=== PATIENT | male | born 1965 | race African-American/Black ===

== ENCOUNTER 2019-06-13 19:36 | Inpatient (IN) | payer OTHER ==
[~2019-06-13] VITALS: Ht 170.2 cm; Wt 89.4 kg
[2019-06-14] VITALS (7 sets, daily range): BP systolic 129–149; BP diastolic 74–84
--- NOTE | 2019-06-14 00:35 | NUR ---
ADMISSION NOTES: RECEIVED REPORT FROM GENE BAHENA, PT BROUGHT TO THE UNIT VIA FLIP. PT DIRECT ADMIT FROM [facility]. PT IS A/O X4, ON RA RESPIRATIONS EVEN AND UNLABORED. PT STILL COMPLAINING OF NON RADIATING PAIN O HIS CHEST AREA. PT CLAIMED HE TOOK NORCO 10/325 MG WHICH HELP WITH HIS PAIN, BUT CLAIMED PAIN STILL THERE. HE ALSO STATED HE'S TAKING FLOMAX DAILY, AND THOSE ARE THE ONLY MEDS HE TAKE AT HOME. PT HAS IV ACCESS ON LEFT AC G 20 PATENT AND FLUSHING WELL, ON HL. ON TELEMONITORING SINUS RHYTHM HR 64. SKIN ASSESSMENT PERFORMED AND NOTED EDEMA ON SCROTUM, PENIS AREA, LEGS AND FEET. FEET EDEMA +2, OFFLOADED ON PILLOWS. SCROTUM OFFLOADED ON ROLLED TOWEL. ADMISSION INTERVIEW PERFORMED. ORIENTED PT TO UNIT POLICY AND HOURLY ROUNDING, USE OF CALL LIGHT SYSTEM. INVENTORY OF BELONGINGS COMPLETED BY JOSH SALAZAR. VS TAKEN AND RECORDED. STANDBY OXYGEN. SAFETY PRECAUTIONS FOR FALL INITIATED, CALL LIGHT IN REACH, WILL CONTINUE MONITORING PT.
--- NOTE | 2019-06-14 01:00 | NUR ---
RN NOTES: PT PMH OF CHEST PAIN, NEPHROLITHIASIS. PT ADMITTD HE HAS PAST HX OF MANIC EPISODE AND HALLUCINATION, DEPRESSION AND WAS PUT ON SEROQUEL BUT CLAIMED HE STOPPED TAKING THE SAID MEDICATION LAST YEAR DUE TO UNWANTED SIDE EFFECTS. PT DENIES ANY SI/HI AT THIS TIME.
[2019-06-14] MEDS ORDERED: HYDR-4354 PO (01:20)
[2019-06-14] MEDS ORDERED: TAMS-12 PO (01:20)
--- NOTE | 2019-06-14 01:35 | NUR ---
RN NOTES: NOTIFIED MD FEED CRUSHER OPERATOR OF PT'S ARRIVAL TO THE UNIT, ALL HOME MEDS PLACED IN THE COMPUTER FOR MED RECON. PER PT OKAY TO EAT AND WILL PUT IN ORDERS.
--- NOTE | 2019-06-14 01:43 | NUR ---
RN NOTES: RECEIVED CALL FROM MD MAINTENANCE MACHINE REPAIRER, STILL WORKING ON HIS ORDERS, COMPUTER/INTERNET SLOW/HAVING GLITCH.
--- NOTE | 2019-06-14 02:00 | NUR ---
RN NOTES: PER MD BACTERIOLOGIST SOIL, PT OKAY TO EAT, PT PROVIDED WITH SAND WHICH AND CRANBERRY JUICE.
[2019-06-14] MEDS ORDERED: ACETAMINOPHEN 325 MG TABLET PO PRN (02:30)
[2019-06-14] MEDS ORDERED: hydrALAZINE HCL 10 MG TABLET PO PRN (02:30)
[2019-06-14] MEDS ORDERED: ZOLPIDEM TARTRATE 5 MG TABLET PO PRN (02:30)
[2019-06-14] MEDS ORDERED: TAMSULOSIN 0.4 MG CAP.SR.24H PO SCH (02:30)
[2019-06-14] MEDS ORDERED: MORPHINE SULFATE INJ 2 MG/ML DISP.SYRIN IV PRN (02:30)
[2019-06-14] MEDS ORDERED: NITROGLYCERIN 0.4 MG/TAB BOTTLE SL PRN (02:30)
[2019-06-14] MEDS ORDERED: MAG HYDROX/AL HYDROX/SIMETH 30 ML UDC PO PRN (02:30)
[2019-06-14] MEDS ORDERED: MAGNESIUM HYDROXIDE 30 ML UDC PO PRN (02:30)
[2019-06-14] MEDS ORDERED: HYDROCODONE/APAP 5/325MG 1 EACH TABLET PO PRN (02:30)
[2019-06-14] MEDS ORDERED: ONDANSETRON HCL/PF 4 MG/2 ML VIAL IVP PRN (02:30)
--- NOTE | 2019-06-14 02:42 | NUR ---
PRN NORCO: PT CLAIMED HE DOES NOT HAVE ANY CHEST PAIN AT THE MOMENT BUT C/O PAIN ON HIS LEGS AND FEET 05/18, REQUESTING FOR NORCO. PRN NORCO 5/325 MG TAB PO ADMINISTERED TO PT AT THIS TIME, WILL CONTINUE MONITORING PT.
--- NOTE | 2019-06-14 02:57 | NUR ---
RN NOTES: ALICIA JACKSON DONE IN [place] RESULT IS NEGATIVE FOR DVT
--- NOTE | 2019-06-14 06:48 | NUR ---
RN CLOSING NOTES: PT REMAINS ON RA RESPIRATIONS EVEN AND UNLABORED. REMAINS SINUS RHYTHM HR 68. PT DENIES ANY CHEST PAIN AT THIS TIME, BUT STILL C/O PAIN ON HIS LEG AND FEET AREA. PT WAS INSTRUCTED NOT TO EAT UNTIL SEEN BY SPECIALTY FOOD PRODUCTS SUPERVISOR, IF IN CASE ORDER PROCEDURE PT BEEN NPO SINCE 0300AM. IV ACCESS REMAINS PATENT AND FLUSHING WELL, ON HL. FOR ECHO TODAY. BLE REMAINS OFFLOADED ON PILLOWS. SAFETY PRECAUTIONS FOR FALL REMAINS ENGAGED, CALL LIGHT IN REACH, WILL ENDORSE TO DAY RN FOR CONTINUITY OF CARE.
[2019-06-14 06:58] LABS: CALCIUM, SERUM 8.8 mg/dL (8.5-10.1); CREATININE 1.9 mg/dL (0.6-1.3); MAGNESIUM 2.3 mg/dL (1.8-2.4); POTASSIUM 4.2 mmol/L (3.5-5.1)
--- NOTE | 2019-06-14 07:15 | NUR ---
PEDIATRIC CLINICAL DIETICIAN OPENING NOTE RECEIVED PT IN BED, ALERT AND ORIENTED X4, DENIES CHEST PAIN, SOB, N/V, BREATHING IS EVEN AND UNLABORED ON ROOM AIR. PT ON SENIOR GOVERNMENT PROGRAM ANALYST AND IS SINUS RHYTHM WITH OCCASIONAL PVC, HR 79 AT THIS TIME. LEFT AC #20G IV IS SALINE LOCKED WITHOUT REDNESS OR SWELLING. PT NPO PENDING CARDIAC CONSULT. ALL NEEDS ATTENDED TO. BED IS LOCKED AND IN LOWEST POSITION, SIDE RAILS UP X2, BED ALARM ON, CALL LIGHT AND POSSESSIONS WITHIN REACH.
[2019-06-14] MEDS ORDERED: ENOXAPARIN SODIUM 80 MG/0.8 ML DISP.SYRIN SQ ONE (09:00)
[2019-06-14 09:05] LABS: BASOPHILS # (AUTO) 0.1 /CMM (0.0-0.2); BASOPHILS % (AUTO) 1.3 % (0.0-2.0); EOSINOPHILS % (AUTO) 4.2 % (0.0-6.0); HEMATOCRIT 40 % (39-51); HEMOGLOBIN 12.9 g/dL (13.5-17.5); LYMPHOCYTES # (AUTO) 1.9 /CMM (0.8-4.8); LYMPHOCYTES % (AUTO) 35.3 % (20.0-44.0); MEAN CORPUSCULAR HGB CONC 33 g/dl (31.0-36.0); MEAN CORPUSCULAR VOLUME 96 fL (80-96); MONOCYTES # (AUTO) 0.6 /CMM (0.1-1.30); MONOCYTES % (AUTO) 11.1 % (2.0-12.0); NEUTROPHILS # (AUTO) 2.6 /CMM (1.8-8.9); NEUTROPHILS % (AUTO) 48.1 % (43.0-81.0); PLATELET COUNT (AUTO) 258 /CMM (150-450); RED BLOOD CELL COUNT(AUTO) 4.17 MIL/uL (4.5-6.0); WHITE BLOOD COUNT (AUTO) 5.4 K/uL (4.3-11.0)
[2019-06-14] MEDS: hydrALAZINE HCL 50 MG TABLET PO SCH ×3 (09:28→16:40)
[2019-06-14] MEDS: ASPIRIN 81 MG TAB.CHEW PO SCH (09:28)
[2019-06-14] MEDS: HYDROCODONE/APAP 10/325MG 1 EA TABLET PO PRN ×2 (09:29→19:54)
--- NOTE | 2019-06-14 09:50 | NUR ---
MS RN NOTE REQUESTED NITRO TUBE TO BE SENT FROM PHARMACY FROM [facility], AWAITING RESPONSE. INFORMED THAT CBC RESULTS CAME BACK WITH NORMAL PLATELETS AND HGB/HCT FOR LOVENOX ADMINISTRATION WELL.
[2019-06-14] MEDS: NITROGLYCERIN 30 GM TUBE TP SCH ×2 (10:26→21:56)
--- NOTE | 2019-06-14 11:03 | NUR ---
WOUND CARE CONSULT; PT PRESENTS AMBULATORY AND CONTINENT WITH EDEMA TO SCROTUM,PENIS AND BILATERAL LOWER LEGS, PRESENT ON ADMISSION. DEFER TO MD. WILL SEE PRN.
--- NOTE | 2019-06-14 15:27 | NUR ---
Social service consult requested by Dr. Arita for drug use. Pt. is a 54 year old -[place] male who was admitted to [facility] for chest pain. SW met with pt. bedside. Pt. has a history of prostate CA diagnosed one year ago and has not been treated. Pt. is alert and oriented x 4. Pt. was cooperative with SW during the assessment. Pt. states he resides at [facility] located at [address] [place] [address] in [place]. [place]. Pt. casework specialist at [facility] in [facility]. Pt's emergency contact is his brother Cristopher . Pt. has been residing at [facility] for the past year. Pt. receives approximately $1027/ month in [employer] money. Pt. states he stopped drinking alcohol 2 weeks ago. Pt's alcohol of choice is Beer. Pt. also states he stopped using cocaine 2 weeks ago. Pt. was using cocaine 3 to 4 times per week. Pt. has a psychiatric diagnosis of Depression and was taking Seroquel but stopped taking the medication due to hurting his stomach. Pt. denies suicidal and homicidal ideations and visual/auditory hallucinations at this time. [facility]IGNON offered pt. drug and alcohol treatment program referrals, however pt. declined. Pt. will need a TAP card upon discharge. MIGNON updated piano case and bench assembler Xander and ELMA Sims with pt. discharge plan.
[2019-06-14] MEDS ORDERED: MAGNESIUM CITRATE 296 ML BOTTLE PO ONE (16:30)
[2019-06-14] MEDS: ESCITALOPRAM OXALATE (10 MG) 10 MG TABLET PO SCH (16:40)
--- NOTE | 2019-06-14 18:33 | NUR ---
MS RN CLOSING NOTE PT IN BED, ALERT AND ORIENTED X4, DENIES CHEST PAIN, SOB, N/V, BREATHING IS EVEN AND UNLABORED ON ROOM AIR. NO OCCURRENCE OF CHEST PAIN FOR THE DURATION OF THE SHIFT. LEFT AC #20G IV IS SALINE LOCKED WITHOUT REDNESS OR SWELLING. ASSISTED WITH ADLS, ALL NEEDS ATTENDED TO. BED IS LOCKED AND IN LOWEST POSITION, SIDE RAILS UP X2, BED ALARM ON, CALL LIGHT AND POSSESSIONS WITHIN REACH. WILL ENDORSE TO CV RN NURSE FOR CONTINUITY OF CARE.
--- NOTE | 2019-06-14 19:30 | NUR ---
RN INITIAL NOTES: RECEIVED REPORT FROM MARVA BAHENA. PT IN BED, AWAKE, A/O X4, DENIES ANY CHEST PAIN AT THIS TIME. PT WAS GIVEN MAG CITRATE TODAY TO HELP MOVE HIS BOWELS. PT SE[facility], ECHO AND DUPPLEX ABDI DONE. US KIDNEYS DONE. NEPHRO CONSULT DONE. PT WAS STARTED ON LOVENOX. IV ACCESS PATENT AND FLUSHING WELL, ON HL. EDEMA ON LEGS AND FEET REMAINS PRESENT. ENCOURAGE TO CONTINUE ELEVATING LEGS ON PILLOWS. DISCUSSED PLAN OF CARE TO PT. SAFETY PRECAUTIONS FOR FALL INITIATED, CALL LIGHT IN REACH, WILL CONTINUE MONITORING PT.
--- NOTE | 2019-06-14 19:55 | NUR ---
PRN NORCO: PT C/O 06/18 BLE PAIN REQUESTING FOR NORCO, REFUSED MORPHINE. PRN NORCO 10/325 MG TAB PO ADMINISTERED TO PT AT THIS TIME. WILL CONTINUE TO MONITOR AND REASSESS PT.
[2019-06-14] MEDS ORDERED: ENOXAPARIN SODIUM 80 MG/0.8 ML DISP.SYRIN SQ SCH (21:00)
[2019-06-14] MEDS: TAMSULOSIN 0.4 MG CAP.SR.24H PO SCH (21:54)
[2019-06-14] MEDS: QUETIAPINE FUMARATE 25 MG TABLET PO SCH (22:00)
--- NOTE | 2019-06-14 22:03 | NUR ---
rn notes: pt refused for seroquel, claimed he had bad effects on seroquel, he does not want any antidepressant medication. education provided to pt.
--- NOTE | 2019-06-15 00:54 | NUR ---
RN NOTES: PT REQUESTED FOR SNACK.
--- NOTE | 2019-06-15 02:00 | NUR ---
RN NOTES: PT SLEEPING AT THIS TIME, APPEARS CALM AND COMFORTABLE
[2019-06-15 06:31] LABS: BASOPHILS % (AUTO) 0.7 % (0.0-2.0); HEMATOCRIT 39 % (39-51); HEMOGLOBIN 12.6 g/dL (13.5-17.5); LYMPHOCYTES # (AUTO) 1.9 /CMM (0.8-4.8); LYMPHOCYTES % (AUTO) 36.9 % (20.0-44.0); MEAN CORPUSCULAR HGB CONC 33 g/dl (31.0-36.0); MEAN CORPUSCULAR VOLUME 94 fL (80-96); MONOCYTES # (AUTO) 0.6 /CMM (0.1-1.30); MONOCYTES % (AUTO) 11.6 % (2.0-12.0); NEUTROPHILS # (AUTO) 2.3 /CMM (1.8-8.9); NEUTROPHILS % (AUTO) 46.8 % (43.0-81.0); PLATELET COUNT (AUTO) 269 /CMM (150-450); RED BLOOD CELL COUNT(AUTO) 4.09 MIL/uL (4.5-6.0)
[2019-06-15 06:52] LABS: ALANINE AMINOTRANSFERASE 17 U/L (12-78); ALBUMIN 3.6 g/dL (3.4-5.0); ALKALINE PHOSPHATASE 56 U/L (46-116); ASPARTATE AMINOTRANSFERASE 26 U/L (15-37); BILIRUBIN,TOTAL 0.6 mg/dL (0.2-1.0); CARBON DIOXIDE 28 mmol/L (21-32); CHLORIDE 101 mmol/L (98-107); GLUCOSE 83 mg/dL (74-106); MAGNESIUM 2.3 mg/dL (1.8-2.4); POTASSIUM 4.7 mmol/L (3.5-5.1); SODIUM SERUM 135 mmol/L (136-145); TOTAL PROTEIN, SERUM 7.4 g/dL (6.4-8.2); UREA NITROGEN, BLOOD 14 mg/dL (7-18)
--- NOTE | 2019-06-15 07:03 | NUR ---
RN CLOSING NOTES: PT AWAKE, REMAINS ON RA, DENIES ANY CHEST PAIN OR DISCOMFORT AT THIS TIME. IV ACCESS REMAINS PATENT AND FLUSHING WELL, ON HL. BLE KEPT OFFLOADED ON PILLOWS. VS REMAINS STABLE, NEEDS ATTENDED. SAFETY PRECAUTIONS FOR FALL INITIATED, CALL LIGHT IN REACH, WILL ENDORSE TO DAY RN FOR CONTINUITY OF CARE.
[2019-06-15] MEDS: HYDROCODONE/APAP 10/325MG 1 EA TABLET PO PRN ×3 (07:51→21:50)
[2019-06-15 08:00] VITALS: BP 135/86
--- NOTE | 2019-06-15 08:00 | NUR ---
MS/RN - Assessment Patient is awake, A/O x 4, no complaints overnight, still noted with swelling on BLE, continue to elevate, denies chest pain at this time, no c/o shortness of breath, afebrile, stable on room air. Patient c/o moderate pain on BLE TN 7/10, [place] 10/325 mg given. Saline lock on the LAC is patent, intact, flushing well. Skin assessment done, no breakdown, independent with bed mobility. Labs reviewed with no critical results. Seen by Dr. Shepard with order for Lexiscan stress test in AM. Patient educated on plan of care. Will continue with current medical management.
--- NOTE | 2019-06-15 08:15 | NUR ---
MS/RN - S/b Dr. López Seen and examined by Dr. López with order for CT abdomen/pelvis without contrast for prostate CA and bilateral hydronephrosis. Patient placed on NPO at this time.
[2019-06-15] MEDS: hydrALAZINE HCL 50 MG TABLET PO SCH ×3 (08:20→17:28)
[2019-06-15] MEDS: NITROGLYCERIN 30 GM TUBE TP SCH ×2 (08:21→21:16)
[2019-06-15] MEDS: ESCITALOPRAM OXALATE (10 MG) 10 MG TABLET PO SCH (08:21)
[2019-06-15] MEDS: ASPIRIN 81 MG TAB.CHEW PO SCH (08:21)
[2019-06-15] MEDS: ENOXAPARIN SODIUM 40 MG/0.4 ML DISP.SYRIN SQ SCH (08:24)
--- NOTE | 2019-06-15 09:45 | NUR ---
MS/RN - Notes Patient taken to radiology via wheelchair for CT abdomen/pelvis without contrast.
--- NOTE | 2019-06-15 10:00 | NUR ---
MS/RN - Notes Patient returned to room in no acute distress, resumed diet order, breakfast given.
--- NOTE | 2019-06-15 10:30 | NUR ---
MS/RN - Notes Patient signed authorization to obtain records from [facility] per Dr. Smith's request. Records were placed in the chart for reference.
--- NOTE | 2019-06-15 13:00 | NUR ---
MS/RN - Notes Patient resting comfortably, denies pain, not in any form of distress.
[2019-06-15 16:00] VITALS: BP 137/88
--- NOTE | 2019-06-15 17:53 | NUR ---
MS/RN - End of shift summary No new events seen, remain afebrile, denies chest pain, no c/o shortness of breath, stable on room air. Patient scheduled for Lexiscan stress test tomorrow morning, will be placed on NPO after midnight. No fall/injury this shift. Will continue with current medical management.
--- NOTE | 2019-06-15 19:58 | NUR ---
RN MS OPENING NOTES RECEIVED PATIENT IN BED AWAKE. ALERT AND ORIENTED X4, VERBALLY RESPONSIVE, ABLE TO MAKE NEEDS KNOWN. BREATHING EVEN AND UNLABORED. NO SOB NOTED. TOLERATING ROOM AIR. CURRENTLY WITH NO COMPLAINTS OF PAIN OR DISCOMFORT. NO FACIAL GRIMACING. IV ON LEFT AC INTACT AND PATENT. SKIN DRY AND WARM TO TOUCH. AFEBRILE. PATIENT NOTED WITH BILATERAL LOWER EXTREMITY/FEET +2 EDEMA. REMINDED PATIENT TO KEEP LOWER EXTREMITIES ELEVATED. PATIENT ALSO REMINDED OF LEXISCAN TOMORROW AM AND TO BE NPO PAST MIDNIGHT - PATIENT VERBALIZED UNDERSTANDING. ALL OTHER NEEDS ATTENDED TO. SAFETY MEASURES IN PLACE. CALL LIGHT WITHIN REACH. WILL CONTINUE TO MONITOR.
[2019-06-15 20:00] VITALS: BP 146/87
[2019-06-15] MEDS: TAMSULOSIN 0.4 MG CAP.SR.24H PO SCH (21:15)
[2019-06-15] MEDS: QUETIAPINE FUMARATE 25 MG TABLET PO SCH (21:16)
--- NOTE | 2019-06-15 21:16 | NUR ---
RN MS NOTES PATIENT REFUSED SEROQUEL TONIGHT. PER PATIENT, HE "DOESN'T NEED IT". EXPLAINED RISKS AND BENEFITS BUT STILL REFUSED. WILL CONTINUE TO MONITOR.
--- NOTE | 2019-06-16 | NUR ---
RN MS NOTES PATIENT PLACED ON NPO STATUS FOR LEXISCAN IN AM. PATIENT VERBALIZED UNDERSTANDING. WILL CONTINUE TO MONITOR.
--- NOTE | 2019-06-16 06:55 | NUR ---
RN MS CLOSING NOTES PATIENT RESTING IN BED. NO ACUTE CHANGES THROUGHOUT SHIFT. BREATHING EVEN AND UNLABORED. NO SOB NOTED. TOLERATING ROOM AIR. CURRENTLY WITH NO COMPLAINTS OF PAIN OR DISCOMFORT. IV ON LEFT AC INTACT AND PATENT. REMINDED PATIENT TO KEEP LOWER EXTREMITIES ELEVATED. PATIENT ALSO REMINDED OF LEXISCAN THIS AM AND TO KEEP NOTHING BY MOUTH- PATIENT VERBALIZED UNDERSTANDING. ALL OTHER NEEDS ATTENDED TO. SAFETY MEASURES IN PLACE. CALL LIGHT WITHIN REACH. WILL ENDORSE TO ONCOMING NURSE FOR EBENEZER.
[2019-06-16 07:07] LABS: FREE PSA 14.87 ng/mL (0.00-45); PROSTATE SPECIFIC ANTIGEN SCR 97.71 ng/mL (0.00-4.00)
--- NOTE | 2019-06-16 07:30 | NUR ---
RN MS NOTES PT IN BED, AWAKE, ALERT AND ORIENTED, NO COMPLAINT OF PAIN OR ANY DISCOMFORT, RESPIRATIONS NORMAL, CALL LIGHT WITHIN REACH, FOR LEXISCAN STRESS TEST THIS MORNING, PT AWARE OF PROCEDURE AND PLAN OF CARE, NEEDS ATTENDED.
[2019-06-16 08:00] VITALS: BP 134/82
[2019-06-16] MEDS ORDERED: REGADENOSON 0.4 MG/5 ML DISP.SYRIN IVP ONE (08:00)
[2019-06-16 09:22] LABS: BASOPHILS % (AUTO) 0.8 % (0.0-2.0); EOSINOPHILS % (AUTO) 4.2 % (0.0-6.0); HEMATOCRIT 38 % (39-51); HEMOGLOBIN 12.6 g/dL (13.5-17.5); LYMPHOCYTES # (AUTO) 1.6 /CMM (0.8-4.8); LYMPHOCYTES % (AUTO) 32.8 % (20.0-44.0); MEAN CORPUSCULAR HGB CONC 33 g/dl (31.0-36.0); MEAN CORPUSCULAR VOLUME 95 fL (80-96); MONOCYTES # (AUTO) 0.6 /CMM (0.1-1.30); NEUTROPHILS # (AUTO) 2.5 /CMM (1.8-8.9); NEUTROPHILS % (AUTO) 50.2 % (43.0-81.0); PLATELET COUNT (AUTO) 255 /CMM (150-450)
[2019-06-16] MEDS: ESCITALOPRAM OXALATE (10 MG) 10 MG TABLET PO SCH (10:01)
[2019-06-16] MEDS: hydrALAZINE HCL 50 MG TABLET PO SCH ×2 (10:03→13:00)
[2019-06-16] MEDS: NITROGLYCERIN 30 GM TUBE TP SCH (10:04)
[2019-06-16] MEDS: ASPIRIN 81 MG TAB.CHEW PO SCH (10:04)
[2019-06-16] MEDS: ENOXAPARIN SODIUM 40 MG/0.4 ML DISP.SYRIN SQ SCH (10:05)
[2019-06-16 10:40] LABS: ALBUMIN 3.9 g/dL (3.4-5.0); BILIRUBIN,TOTAL 0.6 mg/dL (0.2-1.0); CALCIUM, SERUM 9.3 mg/dL (8.5-10.1); CREATININE 2.3 mg/dL (0.6-1.3); MAGNESIUM 2.5 mg/dL (1.8-2.4); PHOSPHORUS 4.6 mg/dL (2.5-4.9); POTASSIUM 5.2 mmol/L (3.5-5.1)
[2019-06-16] MEDS: HYDROCODONE/APAP 10/325MG 1 EA TABLET PO PRN (10:50)
--- NOTE | 2019-06-16 13:00 | NUR ---
RN MS NOTES PT IN BED, ASLEEP, EASY TO AROUSE, ALERT AND ORIENTED, NO COMPLAINT OF PAIN AT THIS TIME, COMPLETED STRESS TEST, TOLERATED WELL, PER DR. AREVALO, OK TO DISCHARGE IS STRESS TEST IS NEGATIVE, PT INFORMED.
[2019-06-16 15:45] VITALS: BP 120/70
--- NOTE | 2019-06-16 16:00 | NUR ---
RN MS NOTES PT IN BED, AWAKE, ALERT AND ORIENTED, NO COMPLAINT OF PAIN, NOT IN DISTRESS, STRESS TEST NEGATIVE, PT INFORMED, MD'S ARE AWARE, DISCHARGE AND MEDICATION INSTRUCTIONS PROVIDED TO PT, VERBALIZED UNDERSTANDING, SKIN CHECK DONE, BELONGINGS ACCOUNTED FOR, PICKED UP BY FAMILY MEMBER, ASSISTED VIA WHEELCHAIR TO HOSPITAL LOBBY BY BROOM STITCHER, LEFT VIA PRIVATE CAR IN STABLE CONDITION.
[2019-06-16] MEDS ORDERED: diphenhydrAMINE HCL 25 MG CAPSULE PO PRN (23:40)
== END 2019-06-16 16:00 | disposition home or self-care (01) | DRG 198 ==
LOC: TELE 06-14 00:31 → MED 06-14 09:46
PROVIDERS: ADMIT Internal Medicine; ATTEND Internal Medicine
DX: I25.10 Atherosclerotic heart disease of native coronary artery without angina pectoris (principal); N17.0 Acute kidney failure with tubular necrosis; C77.9 Secondary and unspecified malignant neoplasm of lymph node, unspecified; C61 Malignant neoplasm of prostate; F17.210 Nicotine dependence, cigarettes, uncomplicated; N18.9 Chronic kidney disease, unspecified; F14.10 Cocaine abuse, uncomplicated; F15.10 Other stimulant abuse, uncomplicated; I12.9 Hypertensive chronic kidney disease with stage 1 through stage 4 chronic kidney disease, or unspecified chronic kidney disease; N50.89 Other specified disorders of the male genital organs; N13.30 Unspecified hydronephrosis; Z86.718 Personal history of other venous thrombosis and embolism; F32.9 Major depressive disorder, single episode, unspecified
CPT/HCPCS: 36415; 71045-TC; 76770-TC; 80048-TC; 80053-TC; 80061-TC; 82105; 83615-TC; 83735-TC; 84100-TC; 84153-TC; 84154-TC; 84484-TC; 84702-TC; 85025-TC; 87081-TC; 93307-TC; 93970-TC; A9502; G0378; J1650; J2785

== ENCOUNTER 2019-06-20 13:38 | Emergency (ER) | payer OTHER ==
[~2019-06-20] VITALS: Ht 170.2 cm; Wt 90.7 kg
[~2019-06-20 13:38] MED LIST: TAMS-12 PO
[2019-06-20 13:47] VITALS: BP 126/52
[2019-06-20] MEDS ORDERED: LORAZEPAM 1 MG TABLET ONE (14:24)
[2019-06-20] MEDS ORDERED: ACETAMINOPHEN ES 500 MG TABLET ONE (14:24)
[2019-06-20 14:26] LABS: BASOPHILS # (AUTO) 0.1 /CMM (0.0-0.2); BASOPHILS % (AUTO) 1.1 % (0.0-2.0); HEMATOCRIT 38 % (39-51); HEMOGLOBIN 12.7 g/dL (13.5-17.5); LYMPHOCYTES # (AUTO) 1.4 /CMM (0.8-4.8); LYMPHOCYTES % (AUTO) 21.3 % (20.0-44.0); MEAN CORPUSCULAR HGB CONC 33 g/dl (31.0-36.0); MEAN CORPUSCULAR VOLUME 96 fL (80-96); MONOCYTES # (AUTO) 0.9 /CMM (0.1-1.30); MONOCYTES % (AUTO) 13.7 % (2.0-12.0); NEUTROPHILS # (AUTO) 3.9 /CMM (1.8-8.9); NEUTROPHILS % (AUTO) 60.9 % (43.0-81.0); PLATELET COUNT (AUTO) 270 /CMM (150-450); RED BLOOD CELL COUNT(AUTO) 3.99 MIL/uL (4.5-6.0); WHITE BLOOD COUNT (AUTO) 6.4 K/uL (4.3-11.0)
[2019-06-20] MEDS ORDERED: ACETAMINOPHEN ES 500 MG TABLET PO ONE (14:30)
[2019-06-20] MEDS ORDERED: LORAZEPAM 1 MG TABLET PO ONE (14:30)
[2019-06-20 14:36] LABS: CALCIUM, SERUM 8.6 mg/dL (8.5-10.1); CREATININE 2.4 mg/dL (0.6-1.3); POTASSIUM 4.4 mmol/L (3.5-5.1)
== END 2019-06-20 16:01 | disposition home or self-care (01) ==
LOC: ER 13:40
DX: M79.18 Myalgia, other site (principal); F19.10 Other psychoactive substance abuse, uncomplicated; F15.90 Other stimulant use, unspecified, uncomplicated; R07.89 Other chest pain; N40.0 Benign prostatic hyperplasia without lower urinary tract symptoms; Z98.890 Other specified postprocedural states; Z85.46 Personal history of malignant neoplasm of prostate; Z59.0 Homelessness; Z95.5 Presence of coronary angioplasty implant and graft
CPT/HCPCS: 36415; 80048-TC; 85025-TC; G0480